=== PATIENT | male | born 1950 | race Caucasian/White ===

== ENCOUNTER → 2022-02-14 | Outpatient (REF) | LOC: M LAB REF 15:16 | DX: R33.9 Retention of urine, unspecified (principal) ==

== ENCOUNTER → 2023-10-14 | Outpatient (CLI) | payer MEDICARE, BC ==
[~2023-10-14] MED LIST: ATOR80TA59; CLOP75TA2; ESCITALOPRAM; LINZ290C; LOSA25TA13; METO1TAB32
== END ==
LOC: M RAD 07:39
PROVIDERS: ATTEND Internal Medicine Nephrology
DX: I70.1 Atherosclerosis of renal artery (principal)